=== PATIENT | male | born 1990 | race Caucasian/White ===

== ENCOUNTER 2021-08-27 03:02 | Emergency (ER) | payer OTHER ==
[~2021-08-27] VITALS: Ht 180.3 cm; Wt 88.5 kg
[2021-08-27] MEDS ORDERED: DICLOFENAC SODI75 MG PO (03:51)
== END 2021-08-27 03:59 | disposition home or self-care (01) ==
LOC: ER 03:02
DX: M25.512 Pain in left shoulder (principal)